=== PATIENT | male | born 1975 | race Caucasian/White ===

== ENCOUNTER 2018-11-12 12:34 | Emergency (ER) | payer OTHER ==
[~2018-11-12] VITALS: Ht 182.9 cm; Wt 90.7 kg
== END 2018-11-12 15:50 | disposition home or self-care (01) ==
LOC: ER 12:34
DX: M25.531 Pain in right wrist (principal); F17.200 Nicotine dependence, unspecified, uncomplicated; V49.9XXA Car occupant (driver) (passenger) injured in unspecified traffic accident, initial encounter; W22.11XA Striking against or struck by driver side automobile airbag, initial encounter
CPT/HCPCS: 73110; 73130; 99283-25

== ENCOUNTER → 2019-01-25 | Outpatient (CLI) | payer OTHER | END | disposition home or self-care (01) | LOC: LAB SHORT 13:49 → LAB EV 13:49 | DX: J01.90 Acute sinusitis, unspecified (principal) | CPT/HCPCS: 87070; 87075; 87077; 87186; 87205 ==

== ENCOUNTER 2023-05-20 07:22 | Emergency (ER) | payer OTHER ==
[~2023-05-20] VITALS: Ht 180.3 cm; Wt 113.4 kg
[2023-05-20 08:55] LABS: BASOPHILS ABSOLUTE AUTO 0.01 K/mm3 (0.00-0.23); BASOPHILS PERCENT AUTO 0 % (0-2); EOSINOPHILS ABSOLUTE AUTO 0.03 K/mm3 (0.00-0.68); EOSINOPHILS PERCENT AUTO 1 % (0-6); Hematocrit 50.7 % (37.0-53.0); Hemoglobin 16.8 g/dL (13.5-17.5); IMMATURE GRAN ABSOLUTE AUTO 0.01 K/mm3 (0.00-0.10); IMMATURE GRAN PERCENT AUTO 0 % (0-1); LYMPHOCYTES PERCENT AUTO 6 % (21-46); MONOCYTES ABSOLUTE AUTO 0.12 K/mm3 (0.16-1.47); MONOCYTES PERCENT AUTO 2 % (4-13); Mean Corpuscular HGB 29.3 pg (26.0-34.0); Mean Corpuscular HGB Conc 33.1 g/dL (31.5-36.5); Mean Corpuscular Volume 89 fL (80-100); Mean Platelet Volume 9.2 fL (9.1-12.4); NEUTROPHILS ABSOLUTE AUTO 4.76 K/mm3 (1.96-9.15); NEUTROPHILS PERCENT AUTO 91 % (41-73); Platelet Count 210 K/mm3 (150-400); RDW Coefficient Variation 12.9 % (11.7-14.2); RDW Standard Deviation 41.8 fL (35.1-46.3); Red Blood Cell Count 5.73 M/mm3 (4.30-5.90); White Blood Cell Count 5.23 K/mm3 (4.00-11.30)
[2023-05-20 09:53] LABS: Albumin, Blood 3.8 g/dL (3.4-5.0); Bilirubin, Total 0.8 mg/dL (0.1-1.0); Bun/Creatinine Ratio 23.6 (12.0-20.0); Calcium, Blood 8.9 mg/dL (8.5-10.1); Creatinine, Blood 1.23 mg/dL (0.60-1.20); Globulin, Blood 3.9 g/dL (2.2-4.0); Potassium, Blood 4.2 mmol/L (3.5-5.5); Total Protein, Blood 7.7 g/dL (6.4-8.2)
[2023-05-20] MEDS ORDERED: ONDA4ODT MM (11:50)
[2023-05-20] MEDS ORDERED: HYDR1TAB94 PO (11:50)
[2023-05-20 12:00] VITALS: BP 120/88
== END 2023-05-20 12:18 | disposition home or self-care (01) ==
LOC: ER 07:22
PROVIDERS: Physician Assistant
DX: K52.9 Noninfective gastroenteritis and colitis, unspecified (principal); F17.200 Nicotine dependence, unspecified, uncomplicated
CPT/HCPCS: 74177; 80053; 83690; 85025; 96361; 96374-59; 96375; 99284-25; J1885; J2405; J7030; Q9967

== ENCOUNTER 2023-06-14 18:50 | Emergency (ER) | payer OTHER | END 2023-06-14 22:12 | disposition home or self-care (01) | LOC: ER 18:50 | DX: R07.9 Chest pain, unspecified (principal); K80.20 Calculus of gallbladder without cholecystitis without obstruction; F17.200 Nicotine dependence, unspecified, uncomplicated; Z79.899 Other long term (current) drug therapy ==

== ENCOUNTER 2025-05-23 08:24 | Day surgery (SDC) | payer OTHER ==
[~2025-05-23] VITALS: Ht 180.3 cm; Wt 94.0 kg
[~2025-05-23 08:24] MED LIST: Bupivacaine 0.5% HCl 5 MG/ML 30MLVIAL ONE; Bupivacaine 0.5% W/EPI 1:200000 SDV 30 ML Vial ONE; Dexamethasone Sod Phos 10 MG/ML 1ML VIAL ONE; FentaNYL Citrate 50 MCG/ML 2 ML Injection ONE; HYDR1TAB94 PO; IBUP800 PO; Ketorolac Tromethamine 30mg Vial ONE; Midazolam HCl 1MG / ML 2ML Vial ONE; ONDA4ODT MM; Ondansetron HCl 2 MG / ML 2ML Vial ONE; Rocuronium Bromide 10 MG/ML 5ML Injection IV ONE
[2025-05-23] MEDS ORDERED: CeFAZolin Sodium 2,000 MG VIAL ONE (08:49)
--- NOTE | 2025-05-23 09:21 | NUR ---
[facility]EDURE 0910: START OF BLOCK PROCEDURE BY DR OROZCO 0912: END OF BLOCK PROCEDURE BY DR OROZCO. PT TOLERATED WELL. PT ON ROOM AIR DURING PROCEDURE.
[2025-05-23] MEDS ORDERED: FentaNYL Citrate 50 MCG/ML 2 ML Injection ONE ×2 (10:56→11:31)
[2025-05-23] MEDS ORDERED: HYDROmorphone HCl/Pf 1MG SYR ONE (11:37)
--- NOTE | 2025-05-23 12:20 | NUR ---
05/23/25 1220 Dana Gray PT ARRIVED IN STEPDOWN DISTRESSED BY PAIN. REPOSITIONING, ICE, ELEVATION PROVIDED WHILE RN GETTING IV MEDS. PAIN MEDS ADMIN FOLLOWS. 1133 - 25 FENT 1140 - 0.5 DIL 1148 - 25 FENT 1155 - 0.5 DIL 1200 - 25 FENT PT APPEARED CALMER STARTING AT 1150, BUT CONTINUED TO STATE PAIN 8/10. ALSO SAID, "I FEEL THE PAIN, I JUST DON'T CARE." OTHER STAFF IN TO ATTEMPT TO PROVIDED DISTRACTION AND NON-PHARMACOLOGICAL PAIN INTERVENTIONS FOR PATIENT. AT 1206, PT STATED PAIN 7/10. AT 1215 PAIN DOWN TO 1215. TOLERATING ICE WATER. DOZING OFF. EMAR AMMENDED TO REFLECT ADMIN TIMES
[2025-05-23 13:30] VITALS: BP 121/75
== END 2025-05-23 13:36 | disposition home or self-care (01) ==
LOC: ORSCSDS 08:24
PROVIDERS: Podiatrist Foot & Ankle Surgery
PROC: 0QBL0ZZ Excision of Right Tarsal, Open Approach (ICD-10-PCS; principal; 2025-05-23 10:15)
DX: M76.821 Posterior tibial tendinitis, right leg (principal); M21.071 Valgus deformity, not elsewhere classified, right ankle; S93.691A Other sprain of right foot, initial encounter; X58.XXXA Exposure to other specified factors, initial encounter; F17.290 Nicotine dependence, other tobacco product, uncomplicated
CPT/HCPCS: A6253; C1713; C1769; J0690; J1100; J1171; J1885; J2250; J2405; J2704; J3010; J7120